=== PATIENT | female | born 1945 | race Hispanic/Latino ===

== ENCOUNTER 2019-09-29 20:10 | Emergency (ER) | payer SELFPAY ==
[~2019-09-29] VITALS: Ht 162.6 cm; Wt 74.8 kg
[2019-09-29] MEDS ORDERED: ACETAMINOPHEN 325 MG TAB PO ONE (20:30)
[2019-09-29] MEDS ORDERED: ACETAMINOPHEN 325 MG TAB ONE (20:34)
[2019-09-29] MEDS ORDERED: SODIUM CHLORIDE 0.9% 1000ML 1,000 ML ONE (20:45)
--- NOTE | 2019-09-29 21:53 | Diagnostic Imaging Report ---
EXAMINATION: CT of the abdomen and pelvis without contrast. TECHNIQUE: Spiral CT images of the abdomen and pelvis were performed from the lung bases to the lesser trochanters. No intravenous contrast was given per renal stone protocol. Coronal and sagittal reformatted images were obtained. COMPARISON: None. CLINICAL HISTORY:COVID PUI, abdominal pain DISCUSSION: ABSENCE OF INTRAVENOUS CONTRAST DECREASES SENSITIVITY FOR DETECTION OF FOCAL LESIONS AND VASCULAR PATHOLOGY. ABDOMEN/PELVIS: LOWER THORAX: Linear opacities in the lateral lingula and right middle lobe likely reflect subsegmental atelectasis or scarring. Atherosclerotic calcification of the aortic valves and coronary arteries. HEPATOBILIARY: Decreased attenuation of the hepatic parenchyma consistent with diffuse steatosis. No focal lesions. No intra or extrahepatic biliary ductal dilation. GALLBLADDER: Cholecystectomy clips. SPLEEN: No splenomegaly. PANCREAS: No focal masses or ductal dilatation. ADRENALS: No adrenal nodules. KIDNEYS/URETERS: No hydronephrosis, stones, or solid mass lesions. PELVIC ORGANS/BLADDER: Bladder is unremarkable. No focal lesions or wall thickening. Uterus is unremarkable. No adnexal masses. Pelvic phleboliths. PERITONEUM/RETROPERITONEUM: No free air or fluid. LYMPH NODES: No intra-abdominal,retroperitoneal, pelvic or inguinal lymphadenopathy. VESSELS: Minimal atherosclerotic calcification of the distal abdominal aorta. GI TRACT: Intraluminal high density material in the ascending and proximal transverse colon may reflect ingestion of this most containing antacids as the patient received no oral contrast. No bowel dilation or evidence of obstruction. No pericolonic inflammatory changes. Scattered diverticula are noted in the sigmoid colon, without diverticulitis. No wall thickening or intraluminal masses. Stomach is unremarkable. BONES AND SOFT TISSUES: Generalized osteopenia. No aggressive lytic or suspicious focal sclerotic lesions. Multilevel degenerative disks in the lower thoracic and lumbosacral spine, worse at L4-L5. Severe spinal stenosis and moderate foraminal stenosis at L4-5 is due to grade 1 anterolisthesis of L4 on L5 and facet arthrosis. Mild S-shaped curvature of the thoracolumbar spine. IMPRESSION: 1. No acute abdominal pelvic abnormalities. Specifically, no acute abnormal findings to explain the patient's pain, despite the limitations of this noncontrast exam. 2. Severe spinal canal stenosis at L4-L5. 3. Hepatic steatosis. Signed by: Dr. Jovanny Samson M.D. on 09/29/2019 9:50 PM
--- NOTE | 2019-09-29 23:12 | Emergency Department Note ---
History of Present Illnes History of Present Illness Chief Complaint: COVID PUI History of Present Illness This is a 74 year old female hief Complaint Comment PT C/O FEVERS, NAUSEA, LOSS OF APPETITE, LOFF OF TASTE, SORE THROAT, AND BAD BODY ACHES, DENIES ANY POSSIBLE EXPOSURE TO COVID PATIENTS, . Historian: Patient Arrival Mode: Car Onset (how long ago): day(s) (2) Location: ABDOMEN Quality: DULL Radiation: Denies non-radiation, Denies back, Denies neck, Denies extremity, Denies abdomen, Denies periumbilical, Denies flank, Denies proximal, Denies dist al, Denies other Severity: moderate Onset quality: gradual Duration (how long): day(s) (2) Timing of current episode: intermittent Progression: waxing and waning Chronicity: new Context: Denies recent illness, Denies recent surgery, Denies recent immobilization, Denies recent travel, Denies trauma/injury, Denies new medications, Denies hx of DVT/PE, Denies non-compliance w/ medications, Denies other Relieving factors: none Exacerbating factors: none Associated symptoms: Reports malaise; Denies denies other symptoms, Denies confusion, Denies chest pain, Denies cough, Denies diaphoresis, Denies fever/chills, Denies headaches, Denies loss of appetite, Denies nausea/vomiting, Denies rash, Denies seizure, Denies shortness of breath, Denies syncope, Denies weakness, Denies other Treatments prior to arrival: none Past Medical/Family History Physician Review I have reviewed the patient's past medical and family history. Any updates have been documented here. Past Medical History Recent Fever: Yes Clinical Suspicion of Infectio: Yes New/Unexplained Change in Ment: No Past Medical History: None Other Surgery: EYE SURGERY KIDNEY STONES RT KNEE Social History Physically hurt or threatened: No Review of Systems Review of Systems Constitutional: Reports as per HPI EENTM: Reports no symptoms Cardiovascular: Reports no symptoms Respiratory: Reports no symptoms Gastrointestinal: Reports as per HPI Genitourinary: Reports no symptoms Musculoskeletal: Reports no symptoms Integumentary: Reports no symptoms Neurological: Reports no symptoms Psychological: Reports no symptoms Endocrine: Reports no symptoms Hematological/Lymphatic: Reports no symptoms Physical Exam Related Data Allergies: Coded Allergies: No Known Allergies (Unverified , 09/29/19) Triage Vital Signs Vital Signs Date Time Temp Pulse Resp B/P (MAP) Pulse Ox O2 Delivery O2 Flow Rate FiO2 09/29/19 20:15 101.8 78 22 144/67 98 Room Air Vital signs reviewed: Yes Physical Exam CONSTITUTIONAL Constitutional: Present well-developed, Present well-nourished HENT HENT: Present normocephalic, Present atraumatic, Present oropharynx clear/moist, Present nose normal HENT L/R: Present left ext ear normal, Present right ext ear normal EYES Eyes: Reports PERRL, Reports conjunctivae normal NECK Neck: Present ROM normal PULMONARY Pulmonary: Present effort normal, Present breath sounds normal CARDIOVASCULAR Cardiovascular: Present regular rhythm, Present heart sounds normal, Present capillary refill normal, Present normal rate GASTROINTESTINAL Abdominal: Present soft, Present bowel sounds normal, Present tender (EPIGASTRIC) GENITOURINARY Genitourinary: Present exam deferred SKIN Skin: Present warm, Present dry MUSCULOSKELETAL Musculoskeletal: Present ROM normal NEUROLOGICAL Neurological: Present alert, Present oriented x 3, Present no gross motor or sensory deficits PSYCHOLOGICAL Psychological: Present mood/affect normal, Present judgement normal Results Laboratory Lab results reviewed: Yes Imaging Imaging results reviewed: Yes Assessment & Plan Medical Decision Making MDM GASTRITIS COVID Reassessment Reassessment time: 23:11 Reassessment BETTER Assessment & Plan Final Impression: (1) Abdominal pain, acute, epigastric (2) Exposure to COVID-19 virus (3) Fever Depart Disposition: HOME, SELF-CARE Last Vital Signs Date Time Temp Pulse Resp B/P (MAP) Pulse Ox O2 Delivery O2 Flow Rate FiO2 09/29/19 20:15 101.8 78 22 144/67 98 Room Air Medications in the ED Acetaminophen 975 mg STK-MED ONCE .ROUTE ; Start 09/29/19 at 20:34; Stop 09/29/19 at 20:28; Status DC Acetaminophen 975 mg ONCE ONCE PO Last administered on 09/29/19at 21:00; Admin Dose 975 MG; Start 09/29/19 at 20:30; Stop 09/29/19 at 20:44; Status DC Sodium Chloride 1,000 ml @ ud STK-MED ONCE .ROUTE ; Start 09/29/19 at 20:45; Stop 09/29/19 at 20:42; Status DC HECTOR SONG MD Sep 29, 2019 23:12
[2019-09-29] MEDS ORDERED: ZOFRAN4 MG SL (23:20)
[2019-09-29] MEDS ORDERED: PEPCID20 MG PO (23:20)
[2019-09-29] MEDS ORDERED: CEFDINIR300 MG PO (23:20)
--- NOTE | 2019-09-29 23:55 | Diagnostic Imaging Report ---
Examination: Single AP view of the chest. COMPARISON: None. INDICATION: Fever, chest pain IMPRESSION: Please note exam was made available for interpretation at 11:45 PM. 1. Lines and Tubes: None 2. Lungs are well inflated. Ill-defined hazy opacity in the region of the right costophrenic sulcus, which may reflect atelectasis, however, early pneumonia could be considered in the appropriate clinical setting. Rest of the lungs is clear. 3. Cardiomediastinal silhouette is normal. Pulmonary vasculature is normal. Tortuous aorta. 4. No acute bony abnormalities. Signed by: Dr. Jovanny Samson M.D. on 09/29/2019 11:51 PM
== END 2019-09-29 23:39 | disposition home or self-care (01) ==
LOC: FSED 20:28
DX: U07.1 COVID-19 (principal); R50.9 Fever, unspecified; R10.13 Epigastric pain
CPT/HCPCS: 71045; 74176; 80053; 82553; 84484; 85025; 99284; J7030; U0002